=== PATIENT | male | born 1960 | race Caucasian/White ===

== ENCOUNTER → 2017-07-31 10:28 | Outpatient (CLI) | payer SELFPAY ==
[2017-07-31 12:04] LABS: Color, Urine Yellow (Yellow); Glucose, Dipstick Normal (Normal); Ketone-Dipstick Negative (Negative); Leukocyte Esterase-Dipstick Negative /ul (Negative); Nitrite-Dipstick Negative (Negative); Occult Blood-Urine 10 /ul (Negative); Protein-Dipstick Negative (Negative); Specific Gravity, Urine 1.025 (1.002-1.030); Urine Bilirubin Dipstick Negative (Negative); Urine Clarity Clear (Clear); Urine Urobilinogen Normal (Normal)
[2017-07-31 12:21] LABS: Absolute Lymphocyte Count 2.01 X10^3/ul (0.83-4.51); Absolute Neutrophil Count 4.2 X10^3/uL (2.0-7.7); Basophil# 0.02 X10^3/uL; Basophil% 0.3 % (0-1); Eosinophils% 1.5 % (0-5); Hematocrit 44.1 % (40-54); Hemoglobin 14.9 g/dl (13.0-16.5); Lymphocyte # 2.01 X10^3/ul (4.0); Lymphocyte % 29.4 % (19-41); Mean Corp Hgb Conc 33.8 g/gl (32-36); Mean Corpuscular Hgb 29.7 pg (27.0-32.0); Mean Corpuscular Volume 87.8 fL (80-94); Monocyte# 0.47 X10^3/uL; Monocyte% 6.9 % (0-10); Neutrophil # 4.23 X10^3/uL (2.7-7.7); Neutrophil % 61.8 % (47-70); Platelet Count 227 K/mm3 (150-450); RBC Distribution Width CV 12.1 % (11.6-14.6); RBC Distribution Width SD 38.6 fl (35.1-43.9); Red Blood Count 5.02 M/mm3 (4.6-6.2); White Blood Count 6.8 K/mm3 (4.4-11.0)
[2017-07-31 12:32] LABS: POSITIVE COUNT NO; POSITIVE DIFFERENTIAL NO; POSITIVE MORPHOLOGY NO
[2017-07-31 12:39] LABS: ALB/GLOB Ratio 0.9 RATIO (0.9-2.4); AST(SGOT) 28 U/L (15-37); Alanine Aminotransfer ALT/SGPT 30 U/L (16-61); Albumin, Serum 3.7 g/dL (3.2-5.0); Alkaline Phosphatase 98 U/L (45-117); Anion Gap 8 (5-15); BUN 16 mg/dL (7-18); Calcium,Total 8.6 mg/dL (8.5-10.1); Chloride 107 mmol/L (98-107); Cholesterol 196 mg/dL (200); EST Glomerular Filtration Rate 82 mL/min (>60); Est Glom Filt Rate - Afr Amer 99 mL/min (>60); Globulin 4.1 g/dL (2.2-4.2); Glucose 108 mg/dL (74-106); High Density Lipoprotein 31 mg/dL; PSA,Total - Annual Screen 0.53 ng/mL (0.00-4.00); Potassium 4.5 mmol/L (3.5-5.1); Protein, Total 7.8 g/dL (6.4-8.2); Sodium Level 144 mmol/L (136-145); Triglycerides 260 mg/dL; Very Low Density Lipoprotein 52 mg/dL (5-40)
[2017-08-02 10:17] LABS: Testosterone Free 5.4 pg/mL (7.2-24.0)
== END ==
PROVIDERS: Family Provider Family Medicine; PCP Family Medicine; Visit Provider Family Medicine
DX: Z00.00 Encounter for general adult medical examination without abnormal findings (principal); Z12.5 Encounter for screening for malignant neoplasm of prostate; R53.83 Other fatigue
CPT/HCPCS: 36415; 80053; 80061; 81002; 84153; 84402; 84403; 85025; G0103

== ENCOUNTER 2017-09-11 15:00 | Outpatient (RCR) | payer SELFPAY | END 2017-09-11 23:59 | LOC: NS 15:00 | PROVIDERS: Family Provider Family Medicine; PCP Family Medicine; Visit Provider Family Medicine | DX: R73.03 Prediabetes (principal); Z71.3 Dietary counseling and surveillance | CPT/HCPCS: 97802 ==

== ENCOUNTER 2020-05-19 15:51 | Outpatient (RCR) | payer MEDICARE, SELFPAY ==
[2020-05-19] MEDS: COVID-19 VACC, MRNA(PFIZER)/PF 30 MCG/0.3 ML SYRINGE IM (12:43)
[2020-06-09] MEDS: COVID-19 VACC, MRNA(PFIZER)/PF 30 MCG/0.3 ML SYRINGE IM (12:34)
== END 2020-05-19 23:59 ==
LOC: IMMUN 15:51
PROVIDERS: PCP Family Medicine; Referring Provider Family Medicine; Visit Provider Family Medicine
DX: Z23 Encounter for immunization (principal)
CPT/HCPCS: 0001A; 0002A; 91300

== ENCOUNTER → 2021-02-09 09:10 | Outpatient (CLI) | payer SELFPAY ==
[2021-02-09 11:02] LABS: Absolute Lymphocyte Count 1.68 X10^3/uL (0.83-4.51); Absolute Neutrophil Count 2.8 X10^3/uL (2.0-7.7); Basophil# 0.03 X10^3/uL; Basophil% 0.6 % (0-1); Eosinophil# 0.17 X10^3/uL; Eosinophils% 3.2 % (0-5); Hematocrit 46.7 % (40-54); Hemoglobin 15.2 g/dL (13.0-16.5); Lymphocyte # 1.68 X10^3/ul (0.83-4.51); Lymphocyte % 31.8 % (19-41); Mean Corp Hgb Conc 32.5 g/dL (32-36); Mean Corpuscular Volume 89.1 fL (80-94); Mean Platelet Vol. 11.1 fl (6.2-12.0); Monocyte# 0.65 X10^3/uL; Monocyte% 12.3 % (0-10); NRBC Flagged by Analyzer 0 % (0-5); Neutrophil # 2.75 X10^3/uL (2.7-7.7); Neutrophil % 51.9 % (47-70); Platelet Count 219 K/mm3 (150-450); RBC Distribution Width SD 39.2 fl (35.1-43.9); Red Blood Count 5.24 M/mm3 (4.6-6.2); White Blood Count 5.3 K/mm3 (4.4-11.0)
[2021-02-09 11:20] LABS: Hemoglobin A1c 6.2 % (3.8-5.6)
[2021-02-09 11:36] LABS: ALB/GLOB Ratio 0.9 RATIO (0.9-2.4); AST(SGOT) 28 U/L (15-37); Alanine Aminotransfer ALT/SGPT 35 U/L (16-61); Albumin, Serum 3.8 g/dL (3.2-5.0); Alkaline Phosphatase 103 U/L (45-117); Anion Gap 7 (5-15); BUN 17 mg/dL (7-18); BUN/Creat Ratio 15.2 RATIO (10-20); Calcium,Total 9.3 mg/dL (8.5-10.1); Chloride 107 mmol/L (98-107); Cholesterol 221 mg/dL (200); Creatinine, Serum 1.12 mg/dL (0.70-1.30); EST Glomerular Filtration Rate 71 mL/min (>60); Est Glom Filt Rate - Afr Amer 86 mL/min (>60); Globulin 4.4 g/dL (2.2-4.2); Glucose 119 mg/dL (74-106); High Density Lipoprotein 33 mg/dL; PSA,Total - Annual Screen 0.69 ng/mL (0.00-4.00); Protein, Total 8.2 g/dL (6.4-8.2); Sodium Level 141 mmol/L (136-145); Triglycerides 183 mg/dL; Very Low Density Lipoprotein 37 mg/dL (5-40)
== END ==
PROVIDERS: PCP Family Medicine; Referring Provider Family Medicine; Visit Provider Family Medicine
DX: Z00.00 Encounter for general adult medical examination without abnormal findings (principal); Z12.5 Encounter for screening for malignant neoplasm of prostate; R73.03 Prediabetes
CPT/HCPCS: 36415; 80053; 80061; 83036; 84153; 85025; G0103